=== PATIENT | male | born 1985 | race Native Hawaiian/Other Pacific Islander ===

== ENCOUNTER 2021-01-11 08:00 | Outpatient (CLI) | payer OTHER ==
[2021-01-21 13:25] LABS: PLATELET COUNT 325 K/uL (142-355)
[2021-01-21 13:26] LABS: POTASSIUM 4.3 mmol/L (3.6-5.2)
== END 2021-01-11 17:00 | disposition home or self-care (01) ==
LOC: LABW 08:00
PROVIDERS: ATTEND Internal Medicine
DX: E11.9 Type 2 diabetes mellitus without complications (principal); E66.01 Morbid (severe) obesity due to excess calories
CPT/HCPCS: 36415; 80053; 80061; 81000; 82043; 82570; 83036; 83519; 84439; 84443; 85027; 86337

== ENCOUNTER → 2021-03-15 | Outpatient (CLI) | payer OTHER | LOC: RAD 20:54 | PROVIDERS: ATTEND Internal Medicine | DX: J40 Bronchitis, not specified as acute or chronic (principal) ==

== ENCOUNTER 2021-03-16 07:56 | Outpatient (CLI) | payer OTHER | END 2021-03-16 21:56 | disposition home or self-care (01) | LOC: RAD 07:56 | PROVIDERS: ATTEND Internal Medicine | DX: J40 Bronchitis, not specified as acute or chronic (principal) ==

== ENCOUNTER 2023-02-05 11:27 | Outpatient (CLI) | payer OTHER | END 2023-02-05 19:58 | disposition home or self-care (01) | LOC: RAD 11:27 | PROVIDERS: ATTEND Internal Medicine | DX: M25.532 Pain in left wrist (principal) ==

== ENCOUNTER 2023-02-09 20:28 | Emergency (ER) | payer OTHER ==
[~2023-02-09] VITALS: Ht 175.3 cm; Wt 175.5 kg
[2023-02-09 22:33] VITALS: BP 124/80; TEMP 97.8
== END 2023-02-09 22:33 | disposition home or self-care (01) ==
LOC: ED 20:28
DX: M25.532 Pain in left wrist (principal); E11.9 Type 2 diabetes mellitus without complications; E66.9 Obesity, unspecified; Z87.891 Personal history of nicotine dependence
CPT/HCPCS: 96372; 99282; J1885

== ENCOUNTER 2023-03-05 08:30 | Outpatient (CLI) | payer OTHER | END 2023-03-05 18:55 | disposition home or self-care (01) | LOC: RAD 08:30 | PROVIDERS: ATTEND Nurse Practitioner Family | DX: M06.4 Inflammatory polyarthropathy (principal); R70.0 Elevated erythrocyte sedimentation rate ==